=== PATIENT | female | born 1990 | race African-American/Black ===

== ENCOUNTER 2016-05-14 01:36 | Emergency (ER) | payer OTHER ==
[~2016-05-14] VITALS: Ht 160 cm; Wt 61.0 kg
[~2016-05-14 01:36] MED LIST: AMOX500C PO; HYDR-3533 PO
[2016-05-14 01:39] VITALS: BP 121/79; PULSE 72; RESP 16; TEMP 98.2; O2SAT 99
[2016-05-14] MEDS ORDERED: IBUP800T23 PO (02:25)
[2016-05-14] MEDS ORDERED: PENI500T PO (02:25)
--- NOTE | 2016-05-14 02:28 | PD ---
HPI Chief Complaint: Oral / Dental Pain or Problem Time Seen by Provider: 02:18 Travel History International Travel<30 days: No Contact w/Intl Traveler<30days: No Traveled to known affect area: No History of Present Illness HPI 25-year-old female presents for evaluation of dental pain. Symptoms initially started a few months ago. The pain worsened today which prompted evaluation. Pain is an aching pain that is localized to the right mandibular first molar. Pain is worse with chewing. She has tried using [id number] Tylenol but symptoms persist. She reports that she has an appointment tomorrow with a dentist. No fevers or chills. No other complaints. PFSH Past Medical History Medical History: Denies Significant Hx Diminished Hearing: No ?: Not LMP: 04/30/16 : 3 Para: 0 Miscarriage: 1 : 1 Dilation and Curettage (D&C): Yes (APR 2014) Social History Alcohol Use: No (NOT SINCE BEING ) Tobacco Use: No Substance Use: No Allergies-Medications (Allergen,Severity, Reaction): Coded Allergies: No Known Allergies (Unverified , 05/14/16) Reported Meds & Prescriptions Reported Meds & Active Scripts Active Lortab (Hydrocodone-Acetaminophen) 5-325 Mg Tab 1 Tab PO Q4H PRN Amoxicillin 500 Mg Cap 500 Mg PO TID Review of Systems General / Constitutional: No: Fever, Chills HENT: Positive: Dental Difficulties Physical Exam Narrative GENERAL: Well-developed well-nourished female in no acute distress SKIN: Warm and dry. HEAD: Atraumatic. Normocephalic. EYES: Pupils equal and round. No scleral icterus. No injection or drainage. ENT: No nasal bleeding or discharge. Mucous membranes pink and moist. Minimal dental decay localized to the right mandibular first and second molars. Tender to palpation. No gingival edema, no facial edema, no sublingual edema, no trismus NECK: Trachea midline. No JVD. No lymphadenopathy. Neck supple full range of motion. Data Data Last Documented VS Vital Signs Date Time Temp Pulse Resp B/P Pulse Ox O2 Delivery O2 Flow Rate FiO2 05/14/16 02:09 72 16 05/14/16 01:39 98.2 121/79 99 Orders Acetamin-Codeine 300-30 Mg (Tylenol-Code (05/14/16 02:30) [facility] Medical Decision Making Medical Screen Exam Complete: Yes Emergency Medical Condition: Yes Medical Record Reviewed: Yes Differential Diagnosis Dental caries, pulpitis, pericoronitis, periodontal abscess Narrative Course 25-year-old female with dental pain for months, worse today. Examination reveals minimal dental decay in the right mandibular molars. Plan is to treat the patient with short course of NSAIDs, antibiotics. She is encouraged to follow-up with dentist tomorrow as scheduled. She is stable for discharge. Diagnosis Primary Impression: Dental caries Additional Instructions: Medication as prescribed. Follow with dentist as scheduled. Return for any emergent medical conditions. Med/Other Pt SpecificInfo: Prescription(s) given Scripts Penicillin V Potassium 500 Mg [id number] Mg PO Q8H 7 Days Ref 0 Prov:Jessica Espinosa MD 05/14/16 Ibuprofen 800 Mg [id number] Mg PO Q8H PRN (PAIN SCALE 6 TO 10) #30 TAB Ref 0 Prov:Jessica Espinosa MD 05/14/16 Disposition: 01 DISCHARGE HOME Condition: Stable Steven Conner May 14, 2016 02:28
[2016-05-14] MEDS ORDERED: ACETAMINOPHEN/CODEINE 300 MG/30 MG TAB PO ONE (02:30)
== END 2016-05-14 03:15 | disposition home or self-care (01) ==
LOC: NEPB 01:36
DX: K02.9 Dental caries, unspecified (principal)
CPT/HCPCS: 99282

== ENCOUNTER 2016-06-22 22:44 | Emergency (ER) | payer OTHER ==
[~2016-06-22] VITALS: Ht 160 cm; Wt 61.4 kg
[~2016-06-22 22:44] MED LIST changes: +IBUP800T23 PO; +PENI500T PO
[2016-06-22 22:46] VITALS: BP 112/73; PULSE 77; RESP 16; TEMP 98; O2SAT 100
== END 2016-06-23 02:10 | disposition left against medical advice (07) ==
LOC: NED 22:44
DX: Z53.21 Procedure and treatment not carried out due to patient leaving prior to being seen by health care provider (principal)
CPT/HCPCS: 99281

== ENCOUNTER 2016-09-26 19:43 | Emergency (ER) | payer OTHER ==
[2016-09-26 20:25] VITALS: BP 125/82; PULSE 106
[2016-09-26 20:26] VITALS: RESP 18; TEMP 99
[2016-09-26 20:53] LABS: BACTERIA, URINE MOD /hpf; BLOOD, URINE NEG (NEG); GLUCOSE,URINE NEG (NEG); KETONE, URINE 40 mg/dL (NEG); MUCUS URINE FEW /lpf (OCC); NITRITE,URINE NEG (NEG); PH, URINE 5.5 (5.0-8.5); SQUAMOUS EPITHELIAL CELL URINE 6 /hpf (0-5); URINE COLOR YELLOW (YELLW/STRAW)
[2016-09-26 20:56] LABS: COMMENT (UR) CULTURE INDICATED; CULTURE IF INDICATED CULTURE INDICATED
[2016-09-26] MEDS ORDERED: MACR100C2 PO (21:19)
--- NOTE | 2016-09-26 21:20 | PD ---
HPI Chief Complaint vaginal spotting Date Seen: September 26, 2016 Travel History International Travel<30 Days: No Contact w/Intl Traveler<30Days: No Known Affected Area: No History of Present Illness HPI This is a 25y/o at 17w1d who presents for evaluation of vaginal spotting. Pt states she noticed this after voiding. She denies diane bleeding , leakage of fluid or contractions. care at [facility], complicated by: 1. young multigravida 2. h/o demise at 14w in 2013 Para: 0 : 3 Miscarriage: 1 : 1 History Past Medical History Medical History: Denies Significant Hx Obstetric History Obstetric History 2013 demise at 14w, D&C Past Surgical History Narrative Surgical D&C in 2013 Family History Family History: Negative Social History Alcohol Use: No Tobacco Use: No Substance Abuse: No Allergies-Medications (Allergen,Severity, Reaction): Coded Allergies: No Known Allergies (Unverified , 06/22/16) Home Meds No Active Prescriptions or Reported Meds Review of Systems Except as stated in HPI: all other systems reviewed are Neg Physical Exam Vital Signs Date Time Temp Pulse Resp B/P Pulse Ox O2 Delivery O2 Flow Rate FiO2 09/26/16 20:26 99.0 18 09/26/16 20:25 106 125/82 Narrative GENERAL: Well-nourished, well-developed patient. SKIN: Warm and dry. HEAD: Normocephalic and atraumatic. EYES: No scleral icterus. No injection or drainage. ENT: No nasal drainage noted. Mucous membranes pink. Airway patent. NECK: Supple, trachea midline. No JVD. CARDIOVASCULAR: Regular rate and rhythm without murmurs, gallops, or rubs. RESPIRATORY: Breath sounds equal bilaterally. No accessory muscle use. BREASTS: Bilateral exam showed no masses , no retractions, no nipple discharge. ABDOMEN/GI: Abdomen soft, non-tender, bowel sounds present, no rebound, no guarding Gravid to 20 weeks size GENITOURINARY: External Genitalia: intact and normal in appearance Cervix: visually closed, + discharge noted Bedside us: active fetus, +FH EXTREMITIES: No cyanosis or edema. BACK: Nontender without obvious deformity. No CVA tenderness. NEUROLOGICAL: Awake and alert. Motor and sensory grossly within normal limits. Five out of 5 muscle strength in all muscle groups. Normal speech. Data Data Vital Signs Reviewed: Yes Orders Vital Signs (Adult) .ON ADMISSION (09/26/16 20:25) Urinalysis - C+S If Indicated (09/26/16 20:25) Wet Prep Profile (09/26/16 20:25) Urine Culture (09/26/16 20:24) Labs Laboratory Tests Test 09/26/16 20:24 Urine Color YELLOW Urine Turbidity HAZY Urine pH 5.5 Urine Specific [place] 1.012 Urine Protein NEG Urine Glucose (UA) NEG Urine Ketones 40 Urine Occult Blood NEG Urine Nitrite NEG Urine Bilirubin NEG Urine Urobilinogen LESS THAN 2.0 Urine Leukocyte Esterase LARGE Urine RBC 27 Urine WBC 21 Urine Squamous Epithelial 6 Cells Urine Amorphous Sediment RARE Urine Bacteria MOD Urine Mucus FEW Microscopic Urinalysis Comment CULTURE INDICATED Clue Cells (Wet Prep) NONE SEEN Vaginal Trichomonas (Wet Prep) NONE SEEN Vaginal Yeast (Wet Prep) NONE SEEN Date/Time Procedure Status Source Growth 09/26/16 20:24 Urine Culture Received Urine Clean Catch Pending MDM Medical Record Reviewed: No Interpretation(s) 25y/o at 17w1d with UTI in . -no evidence of loss -negative wet prep Plan D/c home f/u with routine care on Friday as scheduled Diagnosis Diagnosis: Primary Impression: UTI (urinary tract infection) in in second trimester Disposition: 01 DISCHARGE HOME Condition: Good Scripts Nitrofurantoin Monohydrate Macrocrystals (Macrobid)100 Mg [id number] Mg PO BID 1 Day Ref 0 Prov:Marla Mendez MD 09/26/16 Patient Instructions: Urinary Tract Infection in (ED) Marla Mendez MD September 26, 2016 21:20
== END 2016-09-26 21:27 | disposition home or self-care (01) ==
LOC: HOBED 19:43
DX: O23.42 Unspecified infection of urinary tract in pregnancy, second trimester (principal); B96.89 Other specified bacterial agents as the cause of diseases classified elsewhere; Z3A.17 17 weeks gestation of pregnancy
CPT/HCPCS: 76815; 81001; 87086; 87210